=== PATIENT | male | born 1995 | race Caucasian/White ===

== ENCOUNTER 2024-06-17 13:39 | Emergency (ER) | payer OTHER, SELFPAY ==
[2024-06-17 13:43] VITALS: BP 146/86; PULSE 70; RESP 16; TEMP 36.7; O2SAT 100
[2024-06-17 15:20] VITALS: BP 132/76; PULSE 79; RESP 16; O2SAT 99
--- NOTE | 2024-06-17 15:29 | ED.WOUNDLAC ---
HPI - Wound/Laceration General Chief Complaint: Wound/Laceration Stated Complaint: head lac Time Seen by Provider: 06/17/24 13:55 Source: patient Mode of arrival: ambulatory Limitations: no limitations History of Present Illness HPI narrative: This is a 28 year old male that presents to the ER for a laceration to the scalp. Reports he stood up and accidentally hit his head on a door. Reports bleeding and mild discomfort to the area. He is up-to-date on tetanus. He did not lose consciousness. This vision changes, vomiting, numbness, or weakness. Review of Systems Review of Systems: CONSTITUTIONAL: Denies fever EYES: Denies visual changes GASTROINTESTINAL: Denies vomiting NEUROLOGIC: Denies headache, numbness, or weakness. All systems reviewed & are unremarkable except as noted in HPI and below PMFSH Past Medical History Medical History (Updated 06/17/24 @ 16:20 by Steffany Goyal PA-C) No active medical problems Social History Social History (Updated 06/17/24 @ 15:34 by Steffany Goyal PA-C) Substance use: never Exam Narrative: GENERAL: Well-appearing, well-nourished, and in no acute distress. HEAD: Normocephalic. 4cm linear laceration into subcutaneous tissue to the anterior scalp EYES: PERRLA and EOMI. ENT: Nares clear, no rhinorrhea or epistaxis. Mucous membranes moist. Oropharynx without tonsillar hypertrophy exudate or other lesions. Bilateral TMs pearly lynn non-bulging NECK: Supple. No adenopathy or masses. CHEST: Clear to auscultation. No respiratory distress. No wheezes rales or rhonchi HEART: Regular rate and rhythm. No murmur heard. Normal peripheral pulses. EXTREMITIES: Normal range of motion. No edema. SKIN: Warm, dry, no rash. NEURO: No focal deficits. Alert and oriented x3. CN II-XII grossly intact PSYCH: Normal mood and affect Course Course Emergency Course: Patient educated on wound care Vital Signs Vital signs: Vital Signs Temperature 98.0 F 06/17/24 13:43 Pulse Rate 70 06/17/24 13:43 Respiratory Rate 16 06/17/24 13:43 Blood Pressure 146/86 H 06/17/24 13:43 Pulse Oximetry 100 06/17/24 13:43 Temperature 98.0 F 06/17/24 13:43 Pulse Rate 79 06/17/24 15:20 Respiratory Rate 16 06/17/24 15:20 Blood Pressure 132/76 06/17/24 15:20 Pulse Oximetry 99 06/17/24 15:20 MDM - Wound/Laceration MDM Narrative Medical decision making narrative: Patient presents to the emergency department for a laceration to his scalp. Reports he stood up and accidentally hit his head on a door. He did not lose consciousness. He is neurologically intact. Up-to-date on tetanus. Wound was irrigated and closed with arti. Educated on further wound care. He is to follow up with primary provider. He was given warnings to return to the ER Differential Diagnosis Differential diagnosis: Likely laceration, abrasion and avulsion of skin Critical Care Time Critical Care Time Critical Care Time: No Discharge Plan Discharge Clinical Impression: Laceration Patient Disposition: Home, Self-Care Condition: Stable Instructions: Laceration (ED), Staple Care (ED) Additional Instructions: Return to the emergency department if you experience fever, redness or swelling of your wound, abnormal drainage from your wound, or any other symptoms that are concerning to you. You may let the water run over your wound in the shower. No harsh scrubbing to the area Follow-up with your primary care doctor for staple removal in 7-10 days. Follow-up/Referrals: UNKNOWN,DOCTOR [Primary Care Provider] -
== END 2024-06-17 16:46 | disposition home or self-care (01) ==
PROVIDERS: Emergency Provider Physician Assistant
DX: S01.01XA Laceration without foreign body of scalp, initial encounter (principal); W22.09XA Striking against other stationary object, initial encounter
CPT/HCPCS: 12001; 99282

== ENCOUNTER 2025-02-09 17:16 | Emergency (ER) | payer OTHER, SELFPAY ==
--- OUTSIDE RECORDS SUMMARY | 2025-02-09 17:17 | XMS_ITS | Encounter Summary ---
Author Organization [employer] Address 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
--- OUTSIDE RECORDS SUMMARY | 2025-02-09 17:17 | XMS_ITS | Clinical Summary ---
Author Organization [facility] [employer] Address [address] [place] [address] Care Team Providers Care Real Estate Administrative Assistant Name Role Phone Unavailable Primary Care Provider Unavailabl e Source Comments [facility] [employer],non-owned Affiliates and Associated Physician Practices is amultiple site organization consisting of ambulatory clinics and hospital sitesin [place], [place], [place] and [place]. This disclosure is being madepursuant to the Care Everywhere program and may not contain all information available regarding this patient. Last updated 18.[facility] [employer] Allergies No known active allergies Medications Be aware that medications may not be up to date on this document. Always verify current medications with the patient. No known medications Active Problems Problem Noted Date Diagnosed Date Right acute serous otitis media 05/15/2021 Family History Relation Name Status Comments Brother 1 Alive Brother 2 Alive Brother 3 Alive Father Alive Mother Alive Sister 1 Alive Sister 2 Alive Sister 3 Alive Social History Tobacco Use Types Packs/Day Years Used Date Smoking Tobacco: Never Smokeless Tobacco: Never Alcohol Use Standard Drinks/Week Comments Never 0 (1 standard drink = 0.6 oz pur e alcohol) Sex and Gender Information Value Date Recorded Sex Assigned at Not on file Gender Identity Not on file Sexual Orientation Not on file Last Filed Vital Signs Vital Sign Reading Time Taken Comments Blood Pressure 118/70 05/15/2021 3:00 PM CDT Pulse 70 05/15/2021 3:00 PM CDT Temperature 36.3 C (97.4 F) 05/15/2021 3:00 PM CDT Respiratory Rate 20 05/15/2021 3:00 PM CDT Oxygen Saturation 96% 05/15/2021 3:00 PM CDT Inhaled Oxygen Concentration - - Weight 79.4 kg (175 lb) 05/15/2021 3:00 PM CDT Height 175.3 cm (5' 9 ) 05/15/2021 3:00 PM CDT Body Mass Index 25.84 05/15/2021 3:00 PM CDT Plan of Treatment Health Maintenance Due Date Last Done Comments HIV SCREENING 2008 HEPATITIS C SCREENING 10/06/2011 DTAP/TDAP/TD VACCINES (1 - Tdap) 2012 HEPATITIS B VACCINE (1 of 3 - 19+ 3-dose series) 2012 COVID-19 VACCINE (1 - 2023-2 5 season) 2024 DEPRESSION SCREENING 11/03/2024 INFLUENZA VACCINE (Season Ended) 2025 ZOSTER VACCINE (1 of 2) 2043 HIB VACCINE Aged Out No longer eligi ble based on patient's age to complete this topic HPV VACCINE Aged Out No longer eligi ble based on patient's age to complete this topic MENINGOCOCCAL (Group B) VACC INE SHARED DECISION-MAKING Aged Out No longer eligibl e based on patient's age to complete this topic MENINGOCOCCAL GROUPS A/C/Y/W VACCINE Aged Out No longer eligible b ased on patient's age to complete this topic PNEUMOCOCCAL VACCINE Aged Out No long er eligible based on patient's age to complete this topic
--- OUTSIDE RECORDS SUMMARY | 2025-02-09 17:17 | XMS_ITS | Clinical Summary ---
Author Organization [facility] Address [address] [place] [address] Care Team Providers Care Director Talent Acquisition Name Role Phone Damion Robin MD Primary Care Provider [phone] Allergies No known active allergies Medications No known medications Active Problems Problem Noted Date Diagnosed Date Fatigue 04/23/2024 Vitamin D deficiency 04/23/2024 Body mass index (BMI) of 24.0 to 24.9 in adult 0 04/23/2024 Family history of IA (myocardial infarction) Encounters Date Type Department Care Team Description 02/01/2025 External Device Data [facility] ABSTRACTION Provider, Abstract 01/10/2025 3:20 PM CDT Office Visit [facility] Primary Care [employer] Same Day [address] [place] [address] Nicole Gonzalez, DAVE Acute pain of left shoulder (Primary Dx) 12/28/2024 External Device Data [facility] ABSTRACTION Provider, Abstract 12/22/2024 External Device Data [facility] ABSTRACTION Provider, Abstract 11/24/2024 External Device Data [facility] ABSTRACTION Provider, Abstract 11/24/2024 External Device Data [facility] ABSTRACTION Provider, Abstract 11/17/2024 External Device Data [facility] ABSTRACTION Provider, Abstract from Last 3 Months Immunizations Immunization Administration Dates Next Due (HAVRIX/VAQTA)(12 MO-18 YRS) HEPATITIS A VACCINE 0.5 ML PED/ADOL 2 DOSE, IM 04/18/2008 (M-M-R II/PRIORIX)(12 MO UP) MEASLES, MUMPS AND RUBELLA VIRUS VACCINE, 0.5 ML IM/SUBCUT 10/11/1998,02/28/1995 Diptheria, Tetanus Toxoids, And Whole Cell Pertussis Vaccine (DTP), for intramuscular use 10/11/1998,02/28/1995,04/05/1994,01/29,1993 HIB, Unspecified Formulation 02/28/1995, 04/05/1994,01/29/1994,12/03 Hepatitis B Vaccine, Unspeci fied Formulation 05/29/1994,1993,1993 Poliovirus Vaccine Live Oral 10/11/1998, 02/28/1995,04/05/1994,01/29,1993 Family History Medical History Relation Name Comments Heart Disease Maternal Aunt Heart Disease Maternal Grandfather Heart Disease Maternal Grandmother Relation Name Status Comments Maternal Aunt Alive Maternal Grandfather Maternal Grandmother Social History Tobacco Use Types Packs/Day Years Used Date Smoking Tobacco: Former Cigarettes Tobacco Cessation:Counseling Given: Not Answered Comments:Former light social smoking Alcohol Use Standard Drinks/Week Comments Yes 0 (1 standard drink = 0.6 oz pur e alcohol) rarely Sex and Gender Information Value Date Recorded Sex Assigned at Not on file 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 Gender Identity Not on file Sexual Orientation Not on file Last Filed Vital Signs Vital Sign Reading Time Taken Comments Blood Pressure 116/62 01/10/2025 3:00 PM CDT Pulse 62 01/10/2025 3:00 PM CDT Temperature 36.6 C (97.9 F) 01/10/2025 3:00 PM CDT Respiratory Rate 16 04/23/2024 7:42 AM CDT Oxygen Saturation 98% 01/10/2025 3:00 PM CDT Inhaled Oxygen Concentration - - Weight 78.9 kg (174 lb) 01/10/2025 3:00 PM CDT Height 175.3 cm (5' 9 ) 01/10/2025 3:00 PM CDT Body Mass Index 25.7 01/10/2025 3:00 PM CDT Plan of Treatment Health Maintenance Due Date Last Done Comments DTAP/TDAP/TD VACCINES (6 - Tdap) 2004 10/11/1998, 02/28/1995, 04/05/1994, Additional history exists INFLUENZA VACCINE (#1) 2024 Preventative Visit- Commercial 11/03/2024 04/23/2024 HEPATITIS B VACCINES Completed 05/29/1994, 1993, 1993 HPV VACCINES Aged Out No longer eligi ble based on patient's age to complete this topic Procedures Procedure Name Priority Date/Time Associated Diagnosis Comments OK ARTHROCENTESIS ASPIR&/INJ MAJOR JT/BURSA W/O US Routine 01/10/2025 3:20 PM CDT Acute pain of left shoulder from Last 3 Months Results * OK ARTHROCENTESIS ASPIR&/INJ MAJOR JT/BURSA W/O US (01/10/2025 3:20 PM CDT) Narrative [facility] - 01/10/2025 3:20 PM CDT Nicole Gonzalez FNP 01/10/2025 3:39 PM Large Joint Inject/Drain Date/Time: 01/10/2025 3:20 PM Authorized by: Nicole Gonzalez FNP Performed by: Nicole Gonzalez FNP Consent given by: patient Site marked: site marked Timeout: Immediately prior to procedure a time out was called to verify the correct patient, procedure, equipment, windows server support technician and site/side marked as required Supporting Documentation Indications: pain Anesthesia Local anesthesia used?: local anesthesia used Local anesthetic: ethyl chloride. Sedation Patient sedated?: patient not sedated Procedure Details Location: shoulder - L subacromial bursa Needle size: 22 G Approach: posterior Methylprednisolone amount: 80 mg Lidocaine 1% amount: 2 mL Patient tolerance: patient tolerated the procedure well with no immediate complications us Nicole ACOSTA PROCEDURE/MINOR SURGIC AL ORDERABLES Final Result [facility] CLIA #[id number] [facility] [address] [place] [address], [place] from Last 3 Months Insurance [facility] OPTIONS PPO [id number] CHOICE PLUS Care Teams Director Talent Acquisition Relationship Specialty Start Date End Date Damion Robin MD [address] [place] [address] PCP - General Family Practice 04/23/24
[2025-02-09 17:18] VITALS: BP 149/89; PULSE 66; RESP 17; TEMP 36.6; O2SAT 99
--- OUTSIDE RECORDS SUMMARY | 2025-02-09 20:42 | XMS_ITS | Clinical Summary ---
Author Organization [facility] [employer] Address [address] [place] [address] Care Team Providers Care Home Care Rn Name Role Phone Unavailable Primary Care Provider Unavailabl e Source Comments [facility] [employer],non-owned Affiliates and Associated Physician Practices is amultiple site organization consisting of ambulatory clinics and hospital sitesin [place], [place], [place] and [place]. This disclosure is being madepursuant to the Care Everywhere program and may not contain all information available regarding this patient. Last updated 18.[facility] [employer] Allergies No known active allergies Medications Be [...]
--- OUTSIDE RECORDS SUMMARY | 2025-02-09 20:42 | XMS_ITS | Encounter Summary ---
Author Organization [employer] Address 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
--- OUTSIDE RECORDS SUMMARY | 2025-02-09 20:42 | XMS_ITS | Clinical Summary ---
Author Organization [facility] Address [address] [place] [address] Care Team Providers Care Clinical Nursing Coordinator Name Role Phone Damion Robin MD Primary Care Provider [phone] Allergies No known active allergies Medications No known medications Active Problems Problem Noted Date Diagnosed Date Fatigue 04/23/2024 Vitamin D deficiency 04/23/2024 Body mass index (BMI) of 24.0 to 24.9 in adult 0 04/23/2024 Family history of LA (myocardial infarction) Encounters Date Type Department Care Team Description 02/01/2025 External Device Data ST[facility] ABSTRACTION Provider, Abstract 01/10/2025 3:20 PM CDT Office Visit [facility] Primary Care [place] Same Day [address] [place] [address] Nicole Gonzalez, DAVE Acute pain [...] on file 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 - 01/10/2025 3:20 PM CDT Nicole Gonzalez FNP 01/10/2025 3:39 PM Large Joint Inject/Drain Date/Time: 01/10/2025 3:20 PM Authorized by: Nicole Gonzalez FNP Performed by: Nicole Gonzalez FNP Consent given by: patient Site marked: site marked Timeout: Immediately prior to procedure a time out was called to verify the correct patient, procedure, equipment, instructional support assistant and site/side marked as required Supporting Documentation [...] ACOSTA PROCEDURE/MINOR SURGIC AL ORDERABLES Final Result [facility] CLIA #[id number] [facility] [place] [address], [place] from Last 3 Months Insurance [employer] [facility] OPTIONS PPO [id number] CHOICE PLUS Care Teams Clinical Nursing Coordinator Relationship Specialty Start Date End Date Damion Robin MD [address] [place] [id number] PCP - General Family Practice 04/23/24
== END 2025-02-09 17:30 | disposition left against medical advice (07) ==
DX: H57.89 Other specified disorders of eye and adnexa (principal)
CPT/HCPCS: 99199